=== PATIENT | male | born 1965 | race Caucasian/White ===

== ENCOUNTER 2017-01-11 07:51 | Day surgery (SDC) | payer MEDICAID ==
[2017-01-11] MEDS ORDERED: NS 500 ML IV 500 ML IV ONE (08:43)
[2017-01-11] MEDS ORDERED: NS 1/2 1000 ML IV 500 ML IV ONE (09:00)
[2017-01-11] MEDS ORDERED: TETRACAINE 0.5% OPHTH 1 DOSE AFFEYE ONE ×3 (09:00→11:26)
[2017-01-11] MEDS ORDERED: VIGAMOX 0.5% OPHTH 1 DOSE AFFEYE ONE ×4 (09:01→11:33)
[2017-01-11] MEDS ORDERED: PROLENSA OPHTH 1 DOSE AFFEYE ONE (09:12)
[2017-01-11] MEDS ORDERED: ALPHAGAN-P OPHTH 1 DOSE AFFEYE ONE (09:13)
[2017-01-11] MEDS ORDERED: CYCLOGYL 1% OPHTH 1 DOSE OP ONE ×2 (09:14→09:15)
[2017-01-11] MEDS ORDERED: AK-DILATE 2.5% OPHTH 1 DOSE OP ONE ×2 (09:14→09:15)
[2017-01-11] MEDS ORDERED: MYDRIACIL OPHTH 1 DOSE AFFEYE ONE ×2 (09:14→09:15)
[2017-01-11] MEDS ORDERED: BETADINE OPHTH SOLN 5% EACHEYE ONE (11:20)
[2017-01-11] MEDS ORDERED: DUOVISC IO ONE (11:26)
[2017-01-11] MEDS ORDERED: XYLOCAINE-MPF 1% IJ ONE (11:26)
[2017-01-11] MEDS ORDERED: ADRENALINE CHL INJ IJ ONE (11:26)
[2017-01-11 12:18] VITALS: BP 133/79
[2017-01-11] MEDS ORDERED: DIPRIVAN VIAL ONE (15:56)
== END 2017-01-11 12:10 | disposition home or self-care (01) ==
LOC: SURG1 07:51
PROVIDERS: ATTEND Ophthalmology
PROC: 08RJ3JZ Replacement of Right Lens with Synthetic Substitute, Percutaneous Approach (ICD-10-PCS; principal; 2017-01-11 19:15)
PROC: 08DJ3ZZ Extraction of Right Lens, Percutaneous Approach (ICD-10-PCS; principal; 2017-01-11 19:15)
DX: H25.89 Other age-related cataract (principal)
CPT/HCPCS: A4217; J0170; J3490

== ENCOUNTER 2017-02-01 11:53 | Day surgery (SDC) | payer MEDICAID ==
[2017-02-01] MEDS ORDERED: TETRACAINE 0.5% OPHTH 1 DOSE AFFEYE ONE ×4 (12:00→14:18)
[2017-02-01] MEDS ORDERED: NS 500 ML IV 500 ML IV ONE (12:01)
[2017-02-01] MEDS ORDERED: VIGAMOX 0.5% OPHTH 1 DOSE AFFEYE ONE ×5 (12:05→14:29)
[2017-02-01] MEDS ORDERED: PROLENSA OPHTH 1 DOSE AFFEYE ONE (12:15)
[2017-02-01] MEDS ORDERED: ALPHAGAN-P OPHTH 1 DOSE AFFEYE ONE (12:16)
[2017-02-01] MEDS ORDERED: MYDRIACIL OPHTH 1 DOSE AFFEYE ONE ×3 (12:17→12:19)
[2017-02-01] MEDS ORDERED: CYCLOGYL 1% OPHTH 1 DOSE OP ONE ×3 (12:17→12:19)
[2017-02-01] MEDS ORDERED: AK-DILATE 2.5% OPHTH 1 DOSE OP ONE ×3 (12:17→12:19)
[2017-02-01] MEDS ORDERED: BETADINE OPHTH SOLN 5% EACHEYE ONE (13:59)
[2017-02-01] MEDS ORDERED: ADRENALINE CHL INJ IJ ONE ×2 (14:03→14:18)
[2017-02-01] MEDS ORDERED: XYLOCAINE-MPF 1% IJ ONE ×2 (14:03→14:18)
[2017-02-01] MEDS ORDERED: BSS OPHTH (PLAIN) 500 ML with VANCOMYCIN HCL 500 MG VIAL 25 MG, ADRENALINE CHL INJ 1 MG IR ONE ×3 (14:04)
[2017-02-01] MEDS ORDERED: DUOVISC IO ONE ×2 (14:04→14:18)
[2017-02-01] MEDS ORDERED: DIPRIVAN VIAL ONE (14:17)
[2017-02-01] MEDS ORDERED: VERSED ONE (14:17)
[2017-02-01 16:08] VITALS: BP 134/79
== END 2017-02-01 14:50 | disposition home or self-care (01) ==
LOC: SURG1 11:53
PROVIDERS: ATTEND Ophthalmology
PROC: 08DK3ZZ Extraction of Left Lens, Percutaneous Approach (ICD-10-PCS; principal; 2017-02-01 19:00)
PROC: 08RK3JZ Replacement of Left Lens with Synthetic Substitute, Percutaneous Approach (ICD-10-PCS; principal; 2017-02-01 19:00)
DX: H25.12 Age-related nuclear cataract, left eye (principal); H25.012 Cortical age-related cataract, left eye
CPT/HCPCS: A4217; J0170; J2250; J3370; J3490

== ENCOUNTER 2017-04-12 08:20 | Emergency (ER) | payer MEDICAID ==
[2017-04-12 08:26] VITALS: BP 151/74; BMI 22.2
--- NOTE | 2017-04-12 08:43 | DR.GENAD ---
HPI - PCP Primary Care Physician: JAMMIE - Complaint/Symptoms Chief Complaint Doctors Comments: Patient denies a history of arthritis or trauma. Pain is 10/10, worse with motion. Chief Complaint:: "RIGHT KNEE PAIN FOR A MONTH" - Source History Provided: Patient - Mode of Arrival Mode of Arrival: Ambulatory - Timing Onset of Chief Complaint: 03/12/17 PMH - PMH Past Medical History: No Past Surgical History: Yes Surgical History: Other Past Surgical History Comment: BACK - Family History History of Family Medical Conditions: Yes Family Medical History: Cancer - Social History Does patient currently use any type of tobacco product: No Have you used tobacco products in the last 12 months: No Type of Tobacco Use: Cigarettes Does any household member use tobacco: No Alcohol Use: None Do you use any recreational Drugs:: No Lives With: Family Lives Where: Home - infectious screening In the last 2 months have you had wt loss of >10#?: NO Have you had fever, night sweats or hemotysis?: No Have you traveled outside the country in the last 6 months?: No Isolation: Standard ROS - Review of Systems Eyes: No Symptoms Reported ENTM: No Symptoms Reported Respiratoy: No Symptoms Reported Cardiovascular: No Symptoms Reported Gastrointestinal/Abdominal: No Symptoms Reported Genitourinary: No Symptoms Reported Neurological: No Symptoms Reported Musculoskeletal: Right, Knee (pain) Integumentary: No Symptoms Reported, See HPI Hematologic/Lymphatic: No Symptoms Reported Endocrine: No Symptoms Reported Psychiatric: No Symptoms Reported All Other Systems: Reviewed and Negative PE - Vital Signs Vitals: Temperature 97.7 F Pulse Rate 69 Respiratory Rate 18 Blood Pressure [Right Arm] 122/88 Blood Pressure 151/74 O2 Sat by Pulse Oximetry 99 - General Limitations: No Limitations General Appearance: Alert, In No Apparent Distress - Head Head Exam: Normal Inspection, Atraumatic - Eyes Eye exam: Normal Appearance, PERRL, EOMI - ENT ENT Exam: Normal Exam External Ear Exam: Normal External Inspection TM/Canal Exam: Bilateral Normal Nose Exam: Normal Nose Exam Mouth Exam: Normal Inspection Throat Exam: Normal Inspection - Neck Neck Exam: Normal Inspection - Chest Chest Inspection: Normal Inspection - Respiratory Respiratory Exam: Normal Lung Sounds Bilat Respiratory Exam: Bilateral Clear to Auscultation - Cardiovascular Cardiovascular Exam: Regular Rate, Normal Rhythm - Abdominal Exam Abdominal Exam: Normal Inspection, Normal Bowel Sounds Abdominal Tenderness: negative: RUQ, RLQ, LUQ, LLQ, Epigastrium, Suprapubic, Diffuse, Mild, Moderate, Severe, Other - Extremities Extremities Exam: Normal Inspection - Back Back Exam: Normal Inspection, Full ROM - Neurologic Neurological Exam: Alert, Oriented X3, CN II-XII Intact - Psychiatric Psychiatric Exam: Normal Affect, Normal Mood - Skin Skin Exam: Warm, Dry, Intact ROR - XRAY XRAY Interpreted by: Radiologist (Knee: negative) - Diagnosis Discharge Problem: Knee pain, chronic Qualifiers: Laterality: right Qualified Code(s): M25.561 - Pain in right knee; G89.29 - Other chronic pain - Discharge Plan Condition: Stable - Follow ups/Referrals Follow ups/Referrals: N[facility],None [Primary Care Provider] - 3 days - Instructions
[2017-04-12] MEDS ORDERED: TORADOL 60 MG VIAL IM ONE (08:44)
[2017-04-12] MEDS ORDERED: TORADOL 60 MG VIAL ONE (08:46)
--- NOTE | 2017-04-12 09:24 | RAD ---
HISTORY: Right knee pain, trauma 1 month ago Study: Right knee AP, lateral, oblique Comparison: None Findings: No evidence for acute cortical disruption or dislocation. The medial and lateral tibiofemoral compar tments appear unremarkable without loss of significant joint space. The lateral radiograph fails to demonstrate significant joint effusion. Patellofemoral compartment is normal in its appearance. IMPRESSION: 1. Negative exam. Reported By:
== END 2017-04-12 09:49 | disposition home or self-care (01) ==
LOC: ER 08:30
DX: M25.561 Pain in right knee (principal); G89.29 Other chronic pain
CPT/HCPCS: 73560; 96372; 99282; J1885